=== PATIENT | female | born 1995 | race Two or more races ===

== ENCOUNTER 2024-08-20 19:20 | Emergency (ER) | payer OTHER ==
[~2024-08-20] VITALS: Ht 172.7 cm; Wt 104.3 kg
[2024-08-20] MEDS ORDERED: ONDANSETRON HCL 2 MG/ML VIAL ONE (21:27)
[2024-08-20] MEDS ORDERED: LACTOBACILLUS ACIDOPHILUS 1 CAP CAP PO ONE ×2 (21:27→21:30)
[2024-08-20] MEDS ORDERED: FAMOTIDINE/PF 20 MG/2 ML VIAL ONE (21:27)
[2024-08-20] MEDS ORDERED: ONDANSETRON HCL 2 MG/ML VIAL IV ONE (21:30)
[2024-08-20] MEDS ORDERED: 0.9 % SODIUM CHLORIDE 500 ML IV ONE (21:30)
[2024-08-20] MEDS ORDERED: FAMOTIDINE/PF 20 MG/2 ML VIAL IV ONE (21:30)
[2024-08-20 21:46] LABS: HEMATOCRIT 39.5 % (36.0-45.00); HEMOGLOBIN 13.9 g/dL (12.0-15.00); MEAN CELL VOLUME 85.4 fL (80.00-100.00); MEAN CORPUSCULAR HGB CONC 35.1 g/dl (32.0-36.0); PLATELET COUNT 287 K/uL (150-450); RED BLOOD COUNT 4.63 M/uL (4.00-6.00); RED CELL DISTRIBUTION WIDTH 13.7 % (11.5-14.5)
[2024-08-20 22:12] LABS: PH,URINE 5.5 (5.0-8.0); URINE APPEARANCE Clear; URINE BILIRRUBIN Negative (NEGATIVE); URINE BLOOD Negative; URINE COLOR Yellow; URINE GLUCOSE Negative (NEGATIVE); URINE LEUKOCYTE Negative; URINE NITRATE Negative; URINE PROTEIN Trace (NEGATIVE); URINE UROBILINOGEN 0.2 E.U./dl
[2024-08-20 22:14] LABS: ALBUMIN 3.2 gm/dL (3.4-5.0); BILIRUBIN TOTAL 0.33 mg/dL (0.3-1.2); CREATININE SERUM 0.58 mg/dL (0.55-1.02); GFR 121.25; GLOBULINA 4.6 G/DL (2.4-3.5); POTASSIUM 3.77 mEq/L (3.5-5.1); TOTAL PROTEIN 7.8 gm/dL (6.4-8.2)
[2024-08-20 22:16] LABS: URINE BACTERIA 1888.3 uL (0.0-1933); URINE EPITHELIAL CELLS 32.9 uL (0.0-38.8); URINE RBC 8.5 uL (0.0-20.8); URINE WBC 8.5 uL (0.0-23.2)
[2024-08-20 22:22] LABS: URINE KETONE 80 (NEGATIVE)
[2024-08-21] MEDS ORDERED: METOCLOPRAMIDE HCL 5 MG/ML VIAL IM STA (00:47)
[2024-08-21] MEDS ORDERED: METOCLOPRAMIDE HCL 5 MG/ML VIAL ONE (00:48)
== END 2024-08-21 01:06 | disposition home or self-care (01) ==
LOC: ER 19:22
PROVIDERS: Emergency Medicine
DX: K29.70 Gastritis, unspecified, without bleeding (principal); R11.10 Vomiting, unspecified; R10.9 Unspecified abdominal pain; Z3A.13 13 weeks gestation of pregnancy; Z20.822 Contact with and (suspected) exposure to COVID-19

== ENCOUNTER 2024-11-30 04:26 | Outpatient (CLI) | payer OTHER ==
[~2024-11-30] VITALS: Ht 172.7 cm; Wt 108.9 kg
[2024-11-30 03:55] VITALS: BP 101/53
[2024-11-30] MEDS ORDERED: CYCLOBENZAPRINE HCL 5 MG TABLET PO ONE (04:30)
[2024-11-30] MEDS ORDERED: PRENATAL TABLE1 EAC1 PO (04:39)
[2024-11-30] MEDS ORDERED: LEXAPRO5 MG PO (04:39)
[2024-11-30] MEDS ORDERED: BUSPIRONE HCL5 MG PO (04:39)
[2024-11-30 06:31] VITALS: BP 88/61; O2SAT 97
[2024-11-30 08:19] VITALS: BP 106/67
[2024-11-30 09:37] VITALS: BP 88/61
== END 2024-11-30 09:58 | disposition home or self-care (01) ==
LOC: OBS/DEL 04:26
PROVIDERS: ATTEND Obstetrics & Gynecology Gynecology
DX: O26.893 Other specified pregnancy related conditions, third trimester (principal); M54.50 Low back pain, unspecified; Z3A.28 28 weeks gestation of pregnancy

== ENCOUNTER → 2024-11-30 | Emergency (ER) | payer OTHER ==
[~2024-11-30] VITALS: Ht 172.7 cm; Wt 108.9 kg
[~2024-11-30] MED LIST: BUSPIRONE HCL5 MG PO; LEXAPRO5 MG PO; PRENATAL TABLE1 EAC1 PO
== END | disposition designated cancer center or children's hospital (05) ==
LOC: ER 02:43
DX: Z34.90 Encounter for supervision of normal pregnancy, unspecified, unspecified trimester (principal); Z3A.28 28 weeks gestation of pregnancy; M54.59 Other low back pain

== ENCOUNTER 2025-02-09 12:56 | Inpatient (IN) | payer OTHER ==
[2025-02-09] VITALS (7 sets, daily range): BP systolic 107–135; BP diastolic 71–86; O2SAT 99
[2025-02-09] MEDS ORDERED: OXYTOCIN 500 ML IV SCH (13:45)
[2025-02-09] MEDS ORDERED: RINGERS SOLUTION,LACTATED 1,000 ML IV SCH (13:45)
[2025-02-09] MEDS ORDERED: METHYLERGONOVINE MALEATE 0.2 MG/ML AMPUL IV STA (16:49)
[2025-02-09] MEDS ORDERED: ACETAMINOPHEN WITH CODEINE 1 UDTAB TABLET PO PRN (17:00)
[2025-02-09] MEDS ORDERED: DOCUSATE SODIUM 100MG CAP PO SCH (17:00)
[2025-02-09] MEDS ORDERED: CHLORHEXIDINE GLUCONATE 120 ML BOTTLE TOP SCH (17:00)
[2025-02-09] MEDS ORDERED: OXYTOCIN 1,000 ML IV SCH (17:00)
[2025-02-10 08:10] VITALS: BP 106/72
[2025-02-10 16:28] VITALS: BP 107/73
[2025-02-11 00:25] VITALS: BP 100/60
[2025-02-11 08:26] VITALS: BP 116/79
== END 2025-02-11 15:49 | disposition home or self-care (01) | DRG 807 ==
LOC: LDR 12:56 → OB/GYN 19:03
PROVIDERS: ADMIT Obstetrics & Gynecology; ATTEND Obstetrics & Gynecology
PROC: 10E0XZZ Delivery of Products of Conception, External Approach (ICD-10-PCS; principal; 2025-02-09)
PROC: 0KQM0ZZ Repair Perineum Muscle, Open Approach (ICD-10-PCS; 2025-02-09)
PROC: 0UQG7ZZ Repair Vagina, Via Natural or Artificial Opening (ICD-10-PCS; 2025-02-09)
PROC: 4A1HXCZ Monitoring of Products of Conception, Cardiac Rate, External Approach (ICD-10-PCS; 2025-02-09)
DX: O70.1 Second degree perineal laceration during delivery (principal); Z37.0 Single live birth; Z3A.38 38 weeks gestation of pregnancy